=== PATIENT | female | born 1945 | race Hispanic/Latino ===

== ENCOUNTER 2023-01-14 07:37 | Day surgery (SDC) | payer MEDICARE ==
[~2023-01-14 07:37] MED LIST: ASPI-1026 PO; ATOR40TA69 PO; BRIN8DRO OU; LATA7.5D OU; LEVE750T10 PO; LIDOC; LIDOCAINE TD; LORA10TA7 PO; METO-408 PO; OMEP20TA20 PO; PIRF801T PO; PREG100C PO
[2023-01-14 08:00] VITALS: BP 157/81; PULSE 107; RESP 14
[2023-01-14] MEDS ORDERED: PROPOFOL 10 MG/ML 20ML VIAL IV ONE (10:27)
== END 2023-01-14 12:40 | disposition home or self-care (01) ==
LOC: ENDO 07:37 → DAH 07:37 → ENDO 12:40
PROVIDERS: ATTEND Internal Medicine Gastroenterology
DX: Z09 Encounter for follow-up examination after completed treatment for conditions other than malignant neoplasm (principal); R68.81 Early satiety; R63.0 Anorexia; K29.50 Unspecified chronic gastritis without bleeding; K57.30 Diverticulosis of large intestine without perforation or abscess without bleeding; K56.699 Other intestinal obstruction unspecified as to partial versus complete obstruction; E78.5 Hyperlipidemia, unspecified; J84.10 Pulmonary fibrosis, unspecified; Z79.899 Other long term (current) drug therapy; Z86.010 Personal history of colon polyps; Z68.23 Body mass index [BMI] 23.0-23.9, adult; Z79.82 Long term (current) use of aspirin
CPT/HCPCS: 43239; 45378; J2704; A4620; A4215 ×2; A4223; A7002; A4222; A4221; A4663; A4216; J7030; A4606; J3490

== ENCOUNTER → 2023-02-01 | Outpatient (CLI) | payer MEDICARE ==
[~2023-02-01] MED LIST changes: -LIDOC
== END | disposition home or self-care (01) ==
LOC: RAH 09:14
PROVIDERS: ATTEND Internal Medicine Gastroenterology
DX: R13.10 Dysphagia, unspecified (principal); R68.81 Early satiety
CPT/HCPCS: 74240

== ENCOUNTER → 2023-02-17 | Outpatient (CLI) | payer MEDICARE | END | disposition home or self-care (01) | LOC: RAH 10:16 | PROVIDERS: ATTEND Internal Medicine Gastroenterology | DX: R68.81 Early satiety (principal) | CPT/HCPCS: 78264; A9541 ==